=== PATIENT | male | born 1990 | race Caucasian/White ===

== ENCOUNTER → 2024-05-18 | Outpatient (CLI) | payer OTHER ==
--- NOTE | 2024-05-18 15:55 | XR ---
EXAMINATION TYPE: XR chest 2V DATE OF EXAM: 05/18/2024 3:31 PM COMPARISON: None. CLINICAL INDICATION: Male, 33 years old with history of J189 PNEUMONIA, TECHNIQUE: Frontal and lateral views of the chest are obtained. FINDINGS: There is no focal air space opacity, pleural effusion, or pneumothorax seen. The cardiac silhouette size is within normal limits. The osseous structures are intact. IMPRESSION: No acute pulmonary infiltrate. [facility], , 05/18/2024 3:53 PM
== END | disposition home or self-care (01) ==
LOC: RADXRYALE 15:22
PROVIDERS: ATTEND Family Medicine
DX: J18.9 Pneumonia, unspecified organism (principal)
CPT/HCPCS: 71046